=== PATIENT | male | born 1970 | race Caucasian/White ===

== ENCOUNTER → 2023-05-08 | Outpatient (CLI) | payer OTHER | LOC: RAD 13:12 | DX: M51.34 Other intervertebral disc degeneration, thoracic region (principal); M48.061 Spinal stenosis, lumbar region without neurogenic claudication; M43.16 Spondylolisthesis, lumbar region ==

== ENCOUNTER → 2024-01-12 | Outpatient (CLI) | payer OTHER ==
[2024-01-13 04:28] LABS: INSULIN 8 uIU/mL (2-23)
[2024-01-15 05:37] LABS: LIPOPROTEIN A <8.4 nmol/L (<75.0)
== END ==
LOC: LAB 13:45
DX: I25.10 Atherosclerotic heart disease of native coronary artery without angina pectoris (principal); E78.5 Hyperlipidemia, unspecified; R93.1 Abnormal findings on diagnostic imaging of heart and coronary circulation; Z82.49 Family history of ischemic heart disease and other diseases of the circulatory system